=== PATIENT | female | born 1985 | race Two or more races ===

== ENCOUNTER 2020-02-01 05:31 | Emergency (ER) | payer SELFPAY ==
[~2020-02-01] VITALS: Ht 157.5 cm; Wt 46.3 kg
[2020-02-01 05:35] VITALS: BP 113/76
--- NOTE | 2020-02-01 05:37 | NUR ---
PT [id number] FROM HOME C/O PANICK ATTACK SINCE LAST NIGHT. PT TOOK CITALOPRAM 1 MG W/ NO RELIEF. PT DENIES CP. PT AAOX4,VSS, RESPIRATIONS EVEN AND UNLABORED ON RA W/ NAD NOTED. PT CONNECTED TO THE MONITOR AND POX
[2020-02-01] MEDS ORDERED: ALPRAZOLAM 0.5 MG TABLET ONE (06:31)
[2020-02-01] MEDS: ALPRAZOLAM 0.5 MG TABLET PO ONE (06:33)
--- NOTE | 2020-02-01 07:11 | NUR ---
Patient discharged to home in stable condition. Written and verbal after care instructions given. Patient verbalizes understanding of instruction.
== END 2020-02-01 07:11 | disposition home or self-care (01) ==
LOC: ER 05:34
DX: F41.9 Anxiety disorder, unspecified (principal)